=== PATIENT | male | born 1990 | race American Indian/Alaskan Native ===

== ENCOUNTER 2018-03-10 18:28 | Emergency (ER) | payer BC ==
[2018-03-10 18:43] VITALS: RESP 18; TEMP 98.9
--- NOTE | 2018-03-10 19:21 | ED PDOC ---
Arrival/HPI - General Chief Complaint: Back Pain Time Seen by Provider: 03/10/18 19:21 Historian: Patient - History of Present Illness Narrative History of Present Illness (Text): 03/10/18 19:21 This 27 yo obese patient with a pmh chronic lower back pain, presents to this ED c/o worsening of lower back pain x 7 days. Patient denies trauma, weakness, paresthesias, GI/ incontinence, saddle anesthesias, urinary retention, illegal IV drug use, fever, skin rash, or abnormal gait. Time/Duration: 1 week Quality: Aching Context: Home Past Medical History - Provider Review Nursing Documentation Reviewed: Yes - Infectious Disease Hx of Infectious Diseases: None - Cardiac Hx Cardiac Disorders: No - Pulmonary Hx Respiratory Disorders: No - Integumentary Hx Dermatological Disorder: No - Musculoskeletal/Rheumatological Hx Back Pain: Yes - Gastrointestinal Hx Gastrointestinal Disorders: No - Psychiatric Hx Substance Use: No - Anesthesia Hx Anesthesia: No Family/Social History - Physician Review Nursing Documentation Reviewed: Yes Family/Social History: Other (noncontributory) Smoking Status: Unknown If Ever Smoked Hx Alcohol Use: No Hx Substance Use: No Allergies/Home Meds Allergies/Adverse Reactions: Allergies Penicillins Allergy (Verified 03/10/18 18:44) ANGIOEDEMA dye Allergy (Uncoded 03/10/18 18:44) ANGIOEDEMA Physical Exam Vital Signs Temp Pulse Resp BP Pulse Ox 03/10/18 18:40 98.9 F 92 H 18 143/80 98 Medical Decision Making ED Course and Treatment: 03/10/18 21:33 Re-evaluation. Patient feels better. Discussed results and plan with patient who expresses understanding. All questions answered and there is agreement with the plan to discharge home with instructions. Patient stable for discharge. Return if symptoms persist or worsen. 03/10/18 21:52 Patient requested Prednisone for inflammation. Patient stated he has had Prednisone before. Patient lower back pain has improved with Percocet, Toradol , and Flexeril. Patient was recommended to f/u spine surgery, and to see pain management doctor for his chronic lower back pain. 03/10/18 22:05 I reviewed with patient Percocet and Valium are both medication that they could be addicting. Patient understood risk, and he agrees. Re-evaluation Time: 21:33 Reassessment Condition: Re-examined, Improved - Lab Interpretations Lab Results: Lab Results 03/10/18 20:30: Urine Color Yellow, Urine Appearance Clear, Urine pH 7.0, Ur Specific [place] 1.020, Urine Protein Trace H, Urine Glucose (UA) Negative, Urine Ketones Trace H, Urine Blood Negative, Urine Nitrate Negative, Urine Bilirubin Negative, Urine Urobilinogen 0.2, Ur Leukocyte Esterase Trace H, Urine RBC Negative, Urine WBC 1 - 3, Ur Epithelial Cells 0 - 2, Urine Bacteria Few - RAD Interpretation Narrative RAD Interpretations (Text): 03/10/18 21:33 FINDINGS: Vertebrae: Unremarkable. No acute fracture. Discs/spinal canal/neural foramina: There is a diffuse disc bulge and left paracentral herniation at L5-S1, with mass effect upon the left S1 nerve root within the lateral recess. Soft tissues: Unremarkable. IMPRESSION: There is a diffuse disc bulge and left paracentral herniation at L5-S1, with mass effect upon the left S1 nerve root within the lateral recess Radiology Orders: 03/10/18 19:21 LUMBAR SPINE W/O CONTRAST [CT] Stat - Medication Orders Current Medication Orders: Discontinued Medications Cyclobenzaprine HCl (Flexeril) 10 mg PO STAT STA Stop: 03/10/18 19:23 Last Admin: 03/10/18 19:29 Dose: 10 mg Ketorolac Tromethamine (Toradol) 30 mg IM STAT STA Stop: 03/10/18 19:22 Last Admin: 03/10/18 19:29 Dose: 30 mg MAR Pain Assessment Document 03/10/18 19:29 GMD (Rec: 03/10/18 19:30 D [id number]) Pain Reassessment Is this a pain reassessment? No Presence of Pain Presence of Pain Yes IM Administration Charges Document 03/10/18 19:29 GMD (Rec: 03/10/18 19:30 GMD [id number]) Injection Site MAR Injection Site Left Deltoid Charges for Administration # of IM Administrations 1 Ondansetron HCl (Zofran Odt) 8 mg PO STAT STA Stop: 03/10/18 21:52 Last Admin: 03/10/18 22:04 Dose: 8 mg Oxycodone/Acetaminophen (Percocet 5/325 Mg Tab) 1 tab PO STAT STA Stop: 03/10/18 21:52 Last Admin: 03/10/18 22:04 Dose: 1 tab Prednisone (Prednisone Tab) 60 mg PO STAT ONE Stop: 03/10/18 21:52 Last Admin: 03/10/18 22:04 Dose: 60 mg Disposition/Present on Arrival - Present on Arrival Any Indicators Present on Arrival: No History of DVT/PE: No History of Uncontrolled Diabetes: No Urinary Catheter: No History of Decub. Ulcer: No History Surgical Site Infection Following: None - Disposition Have Diagnosis and Disposition been Completed?: Yes Diagnosis: Chronic lower back pain, Bulging disc, Herniated disc Disposition: HOME/ ROUTINE Disposition Time: 21:59 Patient Plan: Discharge Patient Problems: Current Active Problems Problem Status Onset Bulging disc Acute Chronic lower back pain Acute Herniated disc Acute Condition: GOOD Discharge Instructions (ExitCare): Low Back Pain (DC), Herniated Disc (DC) Additional Instructions: Call private doctor for follow up visit in 1-2 days. take medication as instructed. Call pain management doctor and spine surgeon for revaluation. return to emergency if you develop urinary or bowel incontinence, or worsening of pain Prescriptions: diaZEpam [Valium] 5 mg PO DAILY PRN #6 tab PRN Reason: Pain, Severe (8-10) oxyCODONE/Acetaminophen [Percocet 5/325 mg Tab] 1 tab PO Q4H PRN #10 tab PRN Reason: Pain, Severe (8-10) predniSONE [predniSONE Tab] 60 mg PO DAILY #12 tab Referrals: Luana Veliz, [Primary Care Provider] - Follow up with primary Alexandro Ruvalcaba MD [Staff Provider] - Follow up with primary Pop Singletary MD [Staff Provider] - Follow up with primary Forms: [employer] ([employer]), WORK NOTE
[2018-03-10 20:51] LABS: URINE APPEARANCE CLEAR (CLEAR); URINE BILIRUBIN NEGATIVE (NEGATIVE); URINE BLOOD NEGATIVE (NEGATIVE); URINE COLOR YELLOW (YELLOW); URINE GLUCOSE (UA) NEGATIVE (NEGATIVE); URINE LEUKOCYTE ESTERASE TRACE Leu/uL (NEGATIVE); URINE PROTEIN TRACE mg/dL (<30 mg/dL); URINE UROBILINOGEN 0.2 E.U./dL (<1 E.U./dL)
[2018-03-10 21:02] LABS: URINE BACTERIA FEW (NEG); URINE EPITHELIAL CELLS 0 - 2 /hpf (0-5); URINE RBC NEGATIVE /hpf (0-2)
[2018-03-10] MEDS ORDERED: Oxycodone/Acetaminophen 5/325 mg Tab PO STA (21:51)
[2018-03-10 22:18] VITALS: BP 138/78; PULSE 89; O2SAT 100
--- NOTE | 2018-03-11 09:45 | CT ---
PROCEDURE: CT Lumbar Spine without contrast HISTORY: left lower back pain non-trauma COMPARISON: None. TECHNIQUE: Axial computed tomography images were obtained of the lumbar spine without the use of intravenous contrast. Coronal and sagittal reformatted images were created and reviewed. Radiation dose: Total exam DLP = mGy-cm. This CT exam was performed using one or more of the following dose reduction techniques: Automated exposure control, adjustment of the mA and/or kV according to patient size, and/or use of iterative reconstruction technique. FINDINGS: VERTEBRAE: Unremarkable. No fracture. Normal alignment. DISCS/SPINAL CANAL/NEURAL FORAMINA: L1-2: Unremarkable. L2-3: Unremarkable. L3-4: Unremarkable. L4-5: Unremarkable. L5-S1: Broad-based annular bulge and Focal disc herniation to the left of the midline laterally impressing upon the exiting nerve root at this level (S1). PARASPINAL SOFT TISSUES: Unremarkable. OTHER FINDINGS: Nonobstructing left renal calculus 4 mm. IMPRESSION: Left lateral focal disc herniation L5-S1. Additional benign and/or incidental findings described above. Concordant results (preliminary interpretation) provided by [facility] [employer]. Procedure Completed: 19:38 Preliminary ([facility]) Report: Dictated and Authenticated: 21:02 Final Interpretation: 09:43 March 11, 2018.
== END 2018-03-10 22:16 | disposition home or self-care (01) ==
LOC: MERGE 18:28 → ED 18:28
DX: M51.27 Other intervertebral disc displacement, lumbosacral region (principal)
CPT/HCPCS: 72131; 81001; 96372; 99283; J1885